=== PATIENT | male | born 1975 | race Caucasian/White ===

== ENCOUNTER 2016-08-22 08:30 | Day surgery (SDC) | payer BC, OTHER ==
[2016-08-22 09:14] VITALS: BMI 51.2
[2016-08-22] MEDS ORDERED: LIDOCAINE HCL/PF 2% SDV 5ML VIAL ONE (09:32)
[2016-08-22] MEDS ORDERED: PROPOFOL 40 ML ONE (09:32)
[2016-08-22 10:16] VITALS: TEMP 97.9
[2016-08-22 11:13] VITALS: BP 117/61; PULSE 87
== END 2016-08-22 11:13 | disposition home or self-care (01) ==
LOC: JASU-ENDO 08:30
PROVIDERS: ATTEND Internal Medicine Gastroenterology
PROC: 0DJD8ZZ Inspection of Lower Intestinal Tract, Via Natural or Artificial Opening Endoscopic (ICD-10-PCS; principal; 2016-08-22 09:45)
DX: K62.5 Hemorrhage of anus and rectum (principal); R19.4 Change in bowel habit